=== PATIENT | female | born 1940 | race Hispanic/Latino ===

== ENCOUNTER 2017-11-14 13:15 | Outpatient (CLI) | payer MEDICARE, MEDICAID ==
--- NOTE | 2017-11-14 15:01 | RAD ---
TWO VIEWS CHEST: History: Dyspnea. Comparison: 12-01-14, 12-30-13 FINDINGS: Normal cardiac silhouette. The pulmonary vessels and pulmonary hilum are normal. Costophrenic angles are clear. NO mass. No consolidation. No pneumothorax or osseous abnormalities. IMPRESSION: No acute cardiopulmonary process. POS: [facility]
== END 2017-11-14 13:16 | disposition home or self-care (01) ==
LOC: RAD 13:15
PROVIDERS: ATTEND Internal Medicine
DX: R06.00 Dyspnea, unspecified (principal)
CPT/HCPCS: 71046

== ENCOUNTER 2017-12-26 08:20 | Outpatient (CLI) | payer MEDICARE, MEDICAID ==
--- NOTE | 2017-12-26 10:13 | MRI ---
CERVICAL SPINE MRI WITHOUT CONTRAST: Date: 12-26-17 Comparison: 06-30-15 History: Cervical disc disorder of C6-7. Pain and radiculopathy. History of thoracic spine compressio n fracture. Technique: Multiplanar, multisequence MRI images were obtained of the cervical spine without contrast . FINDINGS: A new burst fracture is noted at the T4 vertebral body with complete loss of vertebral height as well as osseous retropulsion and anterolisthesis measuring 5-6 mm. On STIR imaging there is mild increase d signal within the completely compressed T4 vertebral body consistent with the history of recent fra cture. This is better evaluated on dedicated thoracic spine MRI. Sagittal and STIR imaging demonstrates no focal area of marrow edema within the cervical spine. C2-3: There is mild disc space narrowing. There is disc desiccation. There is mild bilateral facet an d uncal vertebral osteophyte formation. There is no significant central canal or neural foraminal deidre nosis. C3-4: There is disc space narrowing and disc desiccation. There is bilateral facet and uncal vertebra l osteophyte formation. There is partial effacement of the ventral thecal sac with mild central canal stenosis. Mild bilateral neural foraminal stenosis noted. C4-5: There is disc space narrowing, disc desiccation and disc bulge partially effacing the ventral t hecal sac and causing a moderate degree of central canal stenosis. Facet and uncal vertebral osteophy te formation noted bilaterally with moderate right and mild left neural foraminal stenosis. C5-6: There is disc space narrowing, disc desiccation, and disc bulge with partial effacement of the ventral thecal sac and mild to moderate central canal stenosis. Facet and uncal vertebral osteophyte formation noted bilaterally with mild bilateral neural foraminal stenosis. C6-7: There is disc space narrowing, disc desiccation and disc bulge with bilateral facet and uncal v ertebral osteophyte formation. There is partial effacement of the ventral thecal sac with a mild degr ee of central canal stenosis. There is disc protrusion and prominent uncal vertebral osteophyte forma tion on the right in the right foraminal region with a moderate/severe degree of right neural foramin al stenosis. Mild central canal stenosis and mild left neural foraminal stenosis. C7-T1: Mild bilateral facet hypertrophy with mild bilateral neural foraminal stenosis. There is disc desiccation and mild disc bulge with mild central canal stenosis. No focal area of abnormal signal intensity identified within the cervical cord. IMPRESSION: 1. Burst fracture at T4 with anterolisthesis, focal kyphosis, and osseous retropulsion. This is isac r evaluated on dedicated thoracic spine MRI. 2. Multilevel degenerative change noted within the cervical spine as described above. POS: [facility]
--- NOTE | 2017-12-26 10:46 | MRI ---
MRI LUMBAR SPINE WITHOUT IV CONTRAST: HISTORY: A 77-year-old female with a history of low back pain and radiculopathy. TECHNIQUE: Multiplanar, multisequence MRI examination of the lumbar spine is performed. FINDINGS: Generalized disk desiccation changes and ligament and facet hypertrophic changes. The conus medullar is region is unremarkable, terminating at L1-L2. Small disk protrusion at T12-L1 with mild central c anal stenosis. Mild lateral recess stenosis at L1-L2. Moderate lateral recess stenosis at L2-L3 with mild right foraminal stenosis. At L3-L4, moderate central canal and lateral recess stenosis and bilateral foraminal stenosis. At L4-L5, there is very severe canal and lateral recess stenosis with marked facet arthrosis and flui d within the facet joints, with moderate bilateral foraminal stenosis. Moderate central canal stenosis at L5-S1, mild bilateral foraminal stenosis, and bilateral recess deidre nosis, greater on the right side. IMPRESSION: Variable severity multilevel canal, lateral recess, and foraminal stenosis, most marked at L4-L5. POS: [facility]
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
== END 2017-12-26 08:21 | disposition home or self-care (01) ==
LOC: TBSIIMAG 08:20
PROVIDERS: ATTEND Family Medicine
DX: M50.023 Cervical disc disorder at C6-C7 level with myelopathy (principal); S22.000S Wedge compression fracture of unspecified thoracic vertebra, sequela; M54.17 Radiculopathy, lumbosacral region; M54.5 Low back pain; M99.83 Other biomechanical lesions of lumbar region
CPT/HCPCS: 72141; 72146; 72148

== ENCOUNTER 2018-10-25 12:33 | Outpatient (CLI) | payer MEDICARE, MEDICAID ==
--- NOTE | 2018-10-25 13:09 | ULT ---
ULTRASOUND RETROPERITONEUM COMPLETE: (RENAL) DATE: 10/25/2018. HISTORY: A 78-year-old female with urinary tract infection. FINDINGS: Right kidney measures 10 x 5.5 x 5 cm. No hydronephrosis. Normal renal parenchymal echogenicity and thickness. No moderate-sized or large renal cystic or solid mass identified. Left kidney surgicall y absent. Borderline mural thickening of urinary bladder. IMPRESSION: 1. Status post left nephrectomy. 2. Normal sonographic appearance of the right kidney. CHAPINCITO Dunham POS: [facility]
== END 2018-10-25 12:34 | disposition home or self-care (01) ==
LOC: BICULT 12:33
PROVIDERS: ATTEND Urology
DX: N39.0 Urinary tract infection, site not specified (principal); Z98.890 Other specified postprocedural states
CPT/HCPCS: 76770

== ENCOUNTER 2018-11-19 13:30 | Outpatient (CLI) | payer MEDICARE, MEDICAID ==
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
== END 2018-11-19 13:31 | disposition home or self-care (01) ==
LOC: BICMRI 13:30
PROVIDERS: ATTEND Neurological Surgery
DX: M47.12 Other spondylosis with myelopathy, cervical region (principal); M48.56XA Collapsed vertebra, not elsewhere classified, lumbar region, initial encounter for fracture; S22.041A Stable burst fracture of fourth thoracic vertebra, initial encounter for closed fracture; M43.14 Spondylolisthesis, thoracic region; M48.04 Spinal stenosis, thoracic region; M48.02 Spinal stenosis, cervical region
CPT/HCPCS: 72141; 72146

== ENCOUNTER 2019-01-09 04:57 | Inpatient (IN) | payer MEDICARE, MEDICAID ==
[2019-01-09 05:40] LABS: #Eosinphils 0.1 thou/uL (0.0-0.7); #Lymphocytes 1.7 thou/uL (1.20-3.40); #Monocytes 0.2 thou/uL (0.11-0.59); #Neutrophils 8.4 thou/uL (1.40-6.50); %Basophils 0.2 % (0.0-1.0); %Eosinophils 0.8 % (0.0-10.0); %Lymphocytes 16.3 % (21.0-51.0); %Neutrophils 80.8 % (42.0-75.0); Hemoglobin 12.3 g/dL (12.0-16.0); Mean Corpuscular HGB CONC 32.5 g/dL (32.0-36.0); Mean Corpuscular Hemoglobin 29.1 pg (27.0-31.0); Mean Corpuscular Volume 89.5 fL (78.0-98.0); Mean Platelet Volume 8.9 fL (7.4-10.4); Platelet Count 188 thou/uL (130-400); RBC Distribution Width 11.8 % (11.5-14.5); Red Blood Cell (RBC) Count 4.21 mill/uL (4.20-5.40); White Blood Cell (WBC) Count 10.4 thou/uL (4.8-10.8)
[2019-01-09 06:04] LABS: ALT (SGPT) 9 U/L (8-55); AST (SGOT) 23 U/L (5-34); Alkaline Phosphatase 79 U/L (40-150); Anion Gap 16 mmol/L (10-20); BUN (Urea Nitrogen) 15 mg/dL (9.8-20.1); Bilirubin, Total 0.9 mg/dL (0.2-1.2); CK (CPK) 60 U/L (29-168); Calc. Creatinine Clearance 0 mL/min (70-130); Calcium 9.6 mg/dL (7.8-10.44); Carbon Dioxide 24 mmol/L (23-31); Chloride 102 mmol/L (98-107); Estimated GFR-MDRD 36; Globulin 3.5 g/dL (2.4-3.5); Glucose 222 mg/dL (83-110); Lipase 24 U/L (8-78); Potassium 4.5 mmol/L (3.5-5.1); Protein, Total 7.5 g/dL (6.0-8.3); Sodium 137 mmol/L (136-145)
[2019-01-09 06:22] LABS: Bilirubin Negative (Negative); Blood, Urine Moderate (Negative); Glucose, Urine (Dipstick) Negative (Negative); Leukocyte Large (Negative); Nitrite Positive (Negative); Protein, Urine (Dipstick) 100 mg/dL (Neg-Trace); Urobilinogen 0.2 mg/dL (0.2-1.0)
[2019-01-09 06:32] LABS: Clarity Cloudy (Clear)
[2019-01-09 06:35] LABS: Bacteria/HPF 3+ HPF (None Seen); RBC/HPF 0-3 HPF (0-3); Transitional Epithelial 0-3 HPF (0-3); WBC/HPF 21-50 HPF (0-3)
[2019-01-09] MEDS ORDERED: Ketorolac Tromethamine 30 MG/ML VIAL ONE ×2 (06:58→06:59)
--- NOTE | 2019-01-09 07:24 | RAD ---
EXAM: Single view of the chest HISTORY: Abdominal pain and fever COMPARISON: 12/01/2014 FINDINGS: Single view of the chest shows a normal sized cardiomediastinal silhouette. There is no stephen dence of consolidation, mass, or pleural effusion. The bones are unremarkable. IMPRESSION: No evidence of acute cardiopulmonary disease
[2019-01-09] MEDS ORDERED: Acetaminophen 500 MG TAB ONE (08:00)
--- NOTE | 2019-01-09 08:01 | CT ---
ABDOMEN AND PELVIC CT SCAN WITHOUT IV CONTRAST: HISTORY: Flank pain, suprapubic pain, hypertension, status post nephrectomy for renal cell carcinoma. FINDINGS: Bibasilar opacity interstitial and alveolar parenchymal changes, evidence for bibasilar pneumonia and /or subsegmental atelectasis. Three-vessel coronary artery calcific disease. Liver, gallbladder, pa ncreas, spleen, and adrenal glands are unremarkable. Status post left nephrectomy. No evidence for right-sided calculus or acute obstruction, although there is some mild dilatation of the right upp er renal collecting system and right ureter, nonspecific. Given the lack of obstructing process, the possibility of pyelonephritis certainly should be considered. Normal-appearing appendix. Scattered colonic diverticulosis without acute diverticulitis. Urinary bladder is unremarkable. Uterus and a dnexa regions are unremarkable. IMPRESSION: Status post left nephrectomy. No renal calculus or acute obstruction, although there is dilatatio n, mild, of the right upper renal collecting system and ureter, the possibility of pyelonephritis tiffany uld be considered. Bibasilar pulmonary parenchymal changes, evidence for pneumonia and/or subsegment al atelectasis. Other findings as above. POS: [facility]
[2019-01-09] MEDS ORDERED: Acetaminophen 325 MG TAB ONE (08:02)
[2019-01-09] MEDS ORDERED: Artificial Tears 18 DROP/0.9 ML EA EYE PRN (10:19)
[2019-01-09] MEDS ORDERED: Cepastat Lozenges 1 LOZ PO PRN (10:19)
[2019-01-09] MEDS ORDERED: Calcium Carbonate 500 MG ChewTAB PO PRN (10:19)
[2019-01-09] MEDS ORDERED: Senokot S 8.6-50 MG TAB PO PRN (10:19)
[2019-01-09] MEDS ORDERED: Loratadine 10 MG TAB PO PRN (10:19)
[2019-01-09] MEDS ORDERED: Diabetic Tussin 200 MG/10 ML UDCUP PO PRN (10:19)
[2019-01-09] MEDS ORDERED: HYDROcodone/Acetaminophen 5/325 mg Tablet PO PRN (10:19)
[2019-01-09] MEDS ORDERED: Bisacodyl 10 MG SUPP PR PRN (10:19)
[2019-01-09] MEDS ORDERED: Loperamide HCl 2 MG CAP PO PRN (10:19)
[2019-01-09] MEDS ORDERED: Sodium Chloride 0.65% Nasal 44 ML BOT EA NARE PRN (10:19)
[2019-01-09] MEDS ORDERED: Zolpidem Tartrate 5 MG TAB PO PRN (10:19)
[2019-01-09 10:47] VITALS: BMI 32.5
[2019-01-09] MEDS: Sodium Chloride 0.9% 1,000 ML IV SCH ×2 (12:42→21:04)
[2019-01-09] MEDS: Meropenem 500 MG in Sodium Chloride 0.9% 100 ML IVPB SCH ×2 (12:42→21:03)
--- NOTE | 2019-01-09 14:14 | HP ---
PRIMARY CARE PHYSICIAN: Dr. Citlali Alcazar. REASON FOR ADMISSION: Sepsis, acute pyelonephritis. HISTORY OF PRESENT ILLNESS: A 78-year-old female, who has underlying history of left nephrectomy for renal cell carcinoma, who presented to emergency room with complaint of right-sided lumbar pain and right-sided lower abdominal pain. The patient is also having dysuria, increased frequency, nausea, vomiting, and fever. Symptoms going on for last 8 days. The patient did not try any medications. She was trying [id number] medication with Tylenol without any improvement. Her symptoms were getting worse. She started getting high-grade fever with chills. She was feeling more nauseated and she was not able to hold anything p.o. and that is why family member brought her to emergency room for evaluation. In the emergency room, the patient was having high-grade fever. She had CT stone protocol which showed pyelonephritis. The patient was meeting sepsis criteria with tachycardia, fever. The patient received ciprofloxacin in the emergency room. She was given Toradol 15 mg, IV fluid 2 L and Tylenol. The patient is being admitted to medical floor for further evaluation and treatment. She denies any upper respiratory symptoms. She denies any chest pain, palpitation, cough. She denies any constipation, diarrhea. She denies any headache. REVIEW OF SYSTEMS: CONSTITUTIONAL: Negative for weight loss or gain, ability to conduct usual activities. SKIN: Negative for rash, itching. EYES: Negative for double vision, pain. ENT/MOUTH: Negative for nose bleeding, neck stiffness, pain, tenderness. CARDIOVASCULAR: Negative for palpitations, dyspnea on exertion, orthopnea. RESPIRATORY: Negative for shortness of breath, wheezing, cough, hemoptysis, fever or night sweats. GASTROINTESTINAL: Negative for poor appetite, abdominal pain, heartburn, nausea, vomiting, constipation, or diarrhea. GENITOURINARY: Negative for urgency, frequency, dysuria, nocturia. MUSCULOSKELETAL: Negative for pain, swelling. NEUROLOGIC/PSYCHIATRIC: Negative for anxiety, depression. ALLERGY/IMMUNOLOGIC: Negative for skin rash, bleeding tendency. Please see my HPI for pertinent positives and negatives. All other review of systems reviewed and negative except as mentioned in HPI. PAST MEDICAL HISTORY: Diabetes type 2, hypertension, dyslipidemia, history of renal cell carcinoma treated with nephrectomy, gastroesophageal reflux disease. PAST SURGICAL HISTORY: Left renal cell carcinoma treated with left-sided nephrectomy. PAST PSYCHIATRIC HISTORY: Anxiety disorder. SOCIAL HISTORY: The patient denies any tobacco, alcohol, or illicit drug abuse. She lives at home by herself and she is able to do all routine activities of life by herself. FAMILY HISTORY: Diabetes runs among several family members. No strong family history of premature coronary artery disease, stroke, or cancer. ALLERGIES: THE PATIENT IS ALLERGIC TO PENICILLIN, WHICH SHE IS NOT SURE OF SIDE EFFECTS. SHE WAS TOLD SEVERAL YEARS AGO ABOUT PENICILLIN ALLERGY. CURRENT HOME MEDICATION: 1. Metformin 1000 mg p.o. b.i.d. 2. Tramadol 50 mg q.8 hourly p.r.n. 3. Zofran ODT 4 mg q.6 hourly p.r.n. 4. Amlodipine 2.5 mg p.o. daily. 5. Losartan 50 mg p.o. daily. 6. Clonazepam 0.5 mg q.8 hourly p.r.n. 7. Repaglinide 1 mg p.o. daily. 8. Fenofibrate 48 mg p.o. daily. 9. Glipizide 10 mg p.o. daily. 10. Metoprolol tartrate 25 mg p.o. b.i.d. 11. Omeprazole 40 mg p.o. daily. EMERGENCY ROOM COURSE: The patient has received Cipro 400 mg, Tylenol 650 mg, Toradol 15 mg, IV fluid 2 L. PHYSICAL EXAMINATION: VITAL SIGNS: On arrival, blood pressure 116/50, pulse 106, temperature 101.5, saturation 95% on 2L oxygen. Weight 65.8 kg. GENERAL: The patient is currently alert, awake, appears a little bit sick. No obvious acute distress. HEENT: Head normocephalic, atraumatic. Eyes: Pupils round, reactive to light. Extraocular muscle intact. ENT: Oropharynx within normal limits. Dry appearing mucous membranes. No oral lesion. No pharyngeal erythema. No exudate. NECK: Supple. No JVD. No thyromegaly. No carotid bruit. No jugular venous distention. LUNGS: Clear to auscultation without any rhonchi or rales. CARDIAC: S1, S2. Regular. Slight tachycardia. No murmur. No gallop. No rub. ABDOMEN: Soft. The patient does have CVA tenderness on the right side. Does have right-sided lower abdominal discomfort. Obesity present. Bowel sounds present. No peritoneal sign. No guarding. No rigidity. BACK: Right-sided CVA tenderness noted. EXTREMITIES: Upper extremities, passive movement of all joints are normal. Lower extremity, no edema. Good distal pulsation. SKIN: No skin rash. HEMATOLOGICAL: No lymphadenopathy. PSYCHIATRIC: Normal affect. SIGNIFICANT LABORATORY DATA: EKG showing a left axis deviation, normal sinus rhythm without any acute ischemic changes. Chest x-ray based on my review no acute cardiopulmonary process. CT stone protocol showing left nephrectomy and right-sided perinephric stranding, bibasilar pulmonary parenchymal changes consistent with either pneumonia versus atelectasis. CBC: WBC 10.4, hemoglobin 12.3, platelet 188. BMP: Sodium 137, potassium 4.5, BUN 15, creatinine 1.42, glucose 222, calcium 9.6, lactic acid 1.0. LFT: AST 23, ALT 9, alkaline phosphatase 79, albumin 4.0, lipase 24. Urinalysis consistent with UTI. IMPRESSION: 1. Acute cystitis as well as acute pyelonephritis. 2. Sepsis due to problem #1. 3. Acute kidney injury. 4. Diabetes type 2. 5. Hypertension. 6. Gastroesophageal reflux disease. 7. Dyslipidemia. PLAN: Full admission to medical floor. We will hold on antihypertensive medication because of relatively low blood pressure and if blood pressure improves, then we will resume selected blood pressure medication. We will continue IV fluid with NS at 100 mL/h and monitor hemodynamics. We will start meropenem 500 mg IV q.8 hourly based on her previous culture result because some culture were resistant to fluoroquinolones as well. We will follow up on culture result and change antibiotic therapy accordingly. We will repeat labs tomorrow. We will control her pain with morphine p.r.n. basis. We will provide probiotics, Florastor 250 mg p.o. daily and symptomatic treatment for nausea and vomiting and pain. Deep venous thrombosis prophylaxis with Lovenox 40 mg subcu daily. GI prophylaxis with Pepcid 20 mg p.o. b.i.d. CODE STATUS: The patient is full code. The patient's son is THE surrogate decision maker. DISPOSITION: Planned based on clinical course. Plan of care discussed with the patient and family member at bedside in detail. Job ID: [id number]
[2019-01-09] MEDS ORDERED: Ondansetron PF 4 MG/2 ML Vial SLOW IVP PRN (16:43)
[2019-01-09] MEDS ORDERED: Ondansetron ODT 4 MG TAB SL PRN (16:43)
[2019-01-09] MEDS: Acetaminophen 325 MG TAB PO PRN (17:16)
[2019-01-09] MEDS: Famotidine 20 MG TAB PO SCH (21:01)
[2019-01-09] MEDS ORDERED: Sodium Chloride 0.9% 500 ML IV SCH (23:45)
[2019-01-10 00:15] LABS: Hemoglobin 10.6 g/dL (12.0-16.0); Mean Corpuscular HGB CONC 33.3 g/dL (32.0-36.0); Mean Corpuscular Hemoglobin 30.1 pg (27.0-31.0); Mean Corpuscular Volume 90.3 fL (78.0-98.0); Mean Platelet Volume 8.4 fL (7.4-10.4); Platelet Count 159 thou/uL (130-400); RBC Distribution Width 11.8 % (11.5-14.5); Red Blood Cell (RBC) Count 3.51 mill/uL (4.20-5.40); White Blood Cell (WBC) Count 15.7 thou/uL (4.8-10.8)
[2019-01-10 00:28] LABS: Band 24 % (5-11); Lymphocytes 6 % (21-51); MDiff Complete? YES; Monocytes 4 % (0-10); Neutrophil 66 % (42-75); Platelet Morphology Comment Appears Adequate
[2019-01-10] MEDS: Sodium Chloride 0.9% 1,000 ML IV SCH ×3 (03:52→21:13)
[2019-01-10 04:54] LABS: #Eosinphils 0.1 thou/uL (0.0-0.7); #Lymphocytes 2.5 thou/uL (1.20-3.40); #Monocytes 0.9 thou/uL (0.11-0.59); #Neutrophils 11.5 thou/uL (1.40-6.50); %Basophils 0.1 % (0.0-1.0); %Eosinophils 0.4 % (0.0-10.0); %Lymphocytes 16.5 % (21.0-51.0); %Monocytes 5.7 % (0.0-10.0); %Neutrophils 77.3 % (42.0-75.0); Hemoglobin 10.1 g/dL (12.0-16.0); Mean Corpuscular HGB CONC 32.9 g/dL (32.0-36.0); Mean Corpuscular Hemoglobin 30.6 pg (27.0-31.0); Mean Corpuscular Volume 93.1 fL (78.0-98.0); Mean Platelet Volume 8.6 fL (7.4-10.4); Platelet Count 148 thou/uL (130-400); RBC Distribution Width 11.8 % (11.5-14.5); Red Blood Cell (RBC) Count 3.28 mill/uL (4.20-5.40); White Blood Cell (WBC) Count 14.9 thou/uL (4.8-10.8)
[2019-01-10] MEDS: Meropenem 500 MG in Sodium Chloride 0.9% 100 ML IVPB SCH (05:22)
[2019-01-10 05:23] LABS: Anion Gap 12 mmol/L (10-20); BUN (Urea Nitrogen) 18 mg/dL (9.8-20.1); Calc. Creatinine Clearance 39 mL/min (70-130); Calcium 7.5 mg/dL (7.8-10.44); Carbon Dioxide 17 mmol/L (23-31); Chloride 109 mmol/L (98-107); Estimated GFR-MDRD 38; Glucose 113 mg/dL (83-110); Sodium 134 mmol/L (136-145)
[2019-01-10] MEDS: Acetaminophen 325 MG TAB PO PRN ×2 (07:33→16:24)
[2019-01-10] MEDS: Saccharomyces boulardii 250 MG CAP PO SCH (08:23)
[2019-01-10] MEDS: Famotidine 20 MG TAB PO SCH (08:23)
[2019-01-10] MEDS: Enoxaparin Sodium 40 MG/0.4 ML SYRINGE SC SCH (08:23)
--- NOTE | 2019-01-10 09:36 | EKG ---
Test Reason : Blood Pressure : / mmHG Vent. Rate : 098 BPM Atrial Rate : 098 BPM P-R Int : 154 ms QRS Dur : 078 ms QT Int : 336 ms P-R-T Axes : 017 -47 033 degrees QTc Int : 428 ms Normal sinus rhythm Left axis deviation Inferior infarct , age undetermined Possible Anterior infarct , age undetermined Abnormal ECG Confirmed by CLIFFORD MOTTA D.O. ([id number]), pictures editor DUTCH DOVE ([id number]) on 01/10/2019 9:36:10 AM Referred By: Confirmed By:CLIFFORD MOTTA D.O.
--- NOTE | 2019-01-10 11:11 | PDOC.PN ---
- Subjective Encounter Start Date: 01/10/19 Encounter Start Time: 07:15 -: old records requested/rev Patient seen and examined. No new complaints. No overnight events - Objective Resuscitation Status - Order Detail: 01/09/19 08:00 Resuscitation Status Routine Resuscitation Status: FULL: Full Resuscitation MAR Reviewed: Yes Vital Signs & Weight: Vital Signs (12 hours) Temp Pulse Resp BP Pulse Ox 01/10/19 10:17 70 16 01/10/19 06:57 98.4 F 70 16 104/51 L 93 L 01/10/19 06:37 96 01/10/19 06:36 63 16 96 01/10/19 03:55 98.3 F 67 16 101/52 L 95 01/10/19 02:51 16 94 L 01/10/19 00:58 98.1 F 67 20 100/60 92 L 01/09/19 23:31 98.9 F 68 16 89/52 L 93 L Weight Weight 155 lb 12.8 oz I&O: 01/09/19 01/10/19 01/11/19 06:59 06:59 06:59 Intake Total 2320 Output Total 225 Balance 2095 Result Diagrams: 01/10/19 04:32 01/10/19 04:32 Additional Labs: Accuchecks 01/09/19 16:55 POC Glucose 156 H Phys Exam - Physical Examination Constitutional: NAD HEENT: PERRLA, moist MMs, sclera anicteric Neck: no JVD, supple Respiratory: no wheezing, no rales, no rhonchi Cardiovascular: RRR, no significant murmur, no rub Gastrointestinal: soft, non-tender, no distention, positive bowel sounds right CVA tenderness reduced Musculoskeletal: no edema, pulses present Neurological: non-focal, normal sensation, moves all 4 limbs Lymphatic: no nodes Psychiatric: normal affect, A&O x 3 Skin: no rash, normal turgor Dx/Plan (1) Acute kidney failure Status: Acute (2) Acute pyelonephritis Code(s): N10 - ACUTE PYELONEPHRITIS Status: Acute Comment: with acute cystitis (3) Bacteremia due to Escherichia coli Code(s): R78.81 - BACTEREMIA Status: Acute (4) Sepsis with acute organ dysfunction Code(s): A41.9 - SEPSIS, UNSPECIFIED ORGANISM; R65.20 - SEVERE SEPSIS WITHOUT SEPTIC SHOCK Status: Acute (5) Anxiety and depression Code(s): F41.9 - ANXIETY DISORDER, UNSPECIFIED; F32.9 - MAJOR DEPRESSIVE DISORDER, SINGLE EPISODE, UNSPECIFIED Status: Chronic (6) Diabetes type 2, controlled Code(s): E11.9 - TYPE 2 DIABETES MELLITUS WITHOUT COMPLICATIONS Status: Chronic (7) Dyslipidemia Code(s): E78.5 - HYPERLIPIDEMIA, UNSPECIFIED Status: Chronic (8) GERD (gastroesophageal reflux disease) Code(s): K21.9 - GASTRO-ESOPHAGEAL REFLUX DISEASE WITHOUT ESOPHAGITIS Status: Chronic (9) H/O left nephrectomy Code(s): Z90.5 - ACQUIRED ABSENCE OF KIDNEY Status: Chronic Comment: for left renal cell carcinoma (10) Hypertension Code(s): I10 - ESSENTIAL (PRIMARY) HYPERTENSION Status: Chronic (11) Obesity (BMI 30.0-34.9) Code(s): E66.9 - OBESITY, UNSPECIFIED Status: Chronic - Plan cont current plan of care, plan discussed w/ family, continue antibiotics, PT/OT , DVT proph w/lovenox * continue meropenam 1 gm iv q 8 hourly * continue IVF * follow sensitivity result * discussed with son * medication reviewed as below * symptomatic treatment. * start PT Review of Systems - Review of Systems ENT: negative: Ear Pain, Ear Discharge, Nose Pain, Nose Discharge, Nose Congestion, Mouth Pain, Mouth Swelling, Throat Pain, Throat Swelling, Other Respiratory: negative: Cough, Dry, Shortness of Breath, Hemoptysis, SOB with Excertion, Pleuritic Pain, Sputum, Wheezing Cardiovascular: negative: chest pain, palpitations, orthopnea, paroxysmal nocturnal dyspnea, edema, light headedness, other Gastrointestinal: negative: Nausea, Vomiting, Abdominal Pain, Diarrhea, Constipation, Melena, Hematochezia, Other Genitourinary: negative: Dysuria, Frequency, Incontinence, Hematuria, Retention , Other Musculoskeletal: negative: Neck Pain, Shoulder Pain, Arm Pain, Back Pain, Hand Pain, Leg Pain, Foot Pain, Other - Medications/Allergies Allergies/Adverse Reactions: Allergies Allergy/AdvReac Type Severity Reaction Status Date / Time Penicillins Allergy Verified 01/09/19 07:06 Medications: Current Medications Acetaminophen (Tylenol) 650 mg PO Q4H PRN PRN Reason: Headache/Fever/Mild Pain (1-3) Last Admin: 01/10/19 07:33 Dose: 650 mg Hydrocodone Bitart/Acetaminophen ([place] 5/325) 1 tab PO Q4H PRN PRN Reason: Moderate Pain (4-6) Albuterol/Ipratropium (Duoneb) 3 ml NEB [id number] [facility] Last Admin: 01/10/19 10:17 Dose: 3 ml Artificial Tears (Tears Naturale) 2 drop EA EYE PRN PRN PRN Reason: Dry Eyes Bisacodyl (Dulcolax) 10 mg [place] DAILYPRN PRN PRN Reason: Constipation Last Admin: 01/10/19 07:33 Dose: 10 mg Calcium Carbonate (Tums) 1,000 mg PO Q4H PRN PRN Reason: Heartburn or Indigestion Enoxaparin Sodium (Lovenox) 40 mg SC 0900 [facility] Last Admin: 01/10/19 08:23 Dose: 40 mg Famotidine (Pepcid) 20 mg PO BID [facility] Last Admin: 01/10/19 08:23 Dose: 20 mg Guaifenesin (Robitussin Sf) 200 mg PO Q4H PRN PRN Reason: Cough Hydralazine HCl (Apresoline) 10 mg SLOW IVP Q4H PRN PRN Reason: SBP > 180 and HR < 70 Sodium Chloride (Normal Saline 0.9%) 1,000 mls @ 100 mls/hr IV .Q10H [facility] Last Admin: 01/10/19 03:52 Dose: 1,000 mls Meropenem 500 mg/ Sodium (Chloride) 100 mls @ 200 mls/hr IVPB Q8HR [facility] Last Admin: 01/10/19 05:22 Dose: 100 mls Loperamide HCl (Imodium) 2 mg PO PRN PRN PRN Reason: Diarrhea/Loose Stools Loratadine (Claritin) 10 mg PO DAILYPRN PRN PRN Reason: Sinus Symptoms Morphine Sulfate (Morphine) 2 mg SLOW IVP Q4H PRN PRN Reason: Pain Ondansetron HCl (Zofran) 4 mg SLOW IVP Q4H PRN PRN Reason: Nausea Last Admin: 01/09/19 17:16 Dose: 4 mg Ondansetron HCl (Zofran Odt) 4 mg SL Q4H PRN PRN Reason: Nausea Saccharomyces Boulardii (Florastor) 250 mg PO DAILY [facility] Last Admin: 01/10/19 08:23 Dose: 250 mg Senna/Docusate Sodium (Senokot S) 2 tab PO BID PRN PRN Reason: Constipation Last Admin: 01/09/19 21:01 Dose: 2 tab Sodium Chloride ([place] Nasal [place] 0.65%) 0 ml EA NARE QIDPRN PRN PRN Reason: Nasal Congestion Throat Lozenges (Cepastat Lozenges) 1 estefany PO Q2H PRN PRN Reason: Sore Throat Zolpidem Tartrate (Ambien) 5 mg PO HSPRN PRN PRN Reason: Insomnia
[2019-01-10] MEDS ORDERED: MEROPENEM 1 GM/50 ML 1 GM in Premix Bag 1 BAG IVPB SCH (12:00)
[2019-01-10] MEDS: ALPRAZolam 0.25 MG TAB PO PRN (13:13)
[2019-01-10] MEDS: MEROPENEM 1 GM/50 ML 1 GM in Premix Bag 1 BAG IVPB SCH ×2 (13:51→21:13)
[2019-01-10] MEDS ORDERED: Meropenem 1 GM in Sodium Chloride 0.9% 100 ML IVPB SCH (14:00)
[2019-01-10] MEDS ORDERED: Dextrose 50% Abboject 50 ML SYRINGE SLOW IVP PRN (21:22)
[2019-01-10] MEDS ORDERED: HumaLOG 300 UNITS/3 ML VIAL SC PRN (21:22)
[2019-01-10] MEDS ORDERED: Dextrose 5% in Water 1,000 ML IV PRN (21:22)
[2019-01-11] MEDS: ALPRAZolam 0.25 MG TAB PO PRN (03:59)
[2019-01-11] MEDS: MEROPENEM 1 GM/50 ML 1 GM in Premix Bag 1 BAG IVPB SCH (05:26)
[2019-01-11] MEDS: Enoxaparin Sodium 40 MG/0.4 ML SYRINGE SC SCH (09:34)
[2019-01-11] MEDS: Saccharomyces boulardii 250 MG CAP PO SCH (09:34)
[2019-01-11] MEDS: Famotidine 20 MG TAB PO SCH (09:34)
--- NOTE | 2019-01-11 11:44 | PDOC.PN ---
- Subjective Encounter Start Date: 01/11/19 Encounter Start Time: 07:15 Patient seen and examined. No new complaints. No overnight events - Objective Resuscitation Status - Order Detail: 01/09/19 08:00 Resuscitation Status Routine Resuscitation Status: FULL: Full Resuscitation MAR Reviewed: Yes Vital Signs & Weight: Vital Signs (12 hours) Temp Pulse Resp BP BP Pulse Ox 01/11/19 10:53 73 16 01/11/19 08:20 98.6 F 79 18 150/67 H 95 01/11/19 07:09 70 16 01/11/19 03:47 98.2 F 62 16 140/61 95 Weight Weight 155 lb 12.8 oz I&O: 01/10/19 01/11/19 01/12/19 06:59 06:59 06:59 Intake Total 2320 3910 Output Total 225 Balance 2095 3910 Result Diagrams: 01/10/19 04:32 01/10/19 04:32 Additional Labs: Accuchecks 01/11/19 05:30 POC Glucose 194 H Phys Exam - Physical Examination Constitutional: NAD HEENT: PERRLA, moist MMs, sclera anicteric Neck: no JVD, supple Respiratory: no wheezing, no rales, no rhonchi Cardiovascular: RRR, no significant murmur, no rub Gastrointestinal: soft, non-tender, no distention, positive bowel sounds Musculoskeletal: no edema, pulses present Neurological: non-focal, normal sensation, moves all 4 limbs Lymphatic: no nodes Psychiatric: normal affect, A&O x 3 Skin: no rash, normal turgor Dx/Plan (1) Acute kidney failure Status: Acute (2) Acute pyelonephritis Code(s): N10 - ACUTE PYELONEPHRITIS Status: Acute Comment: with acute cystitis (3) Bacteremia due to Escherichia coli Code(s): R78.81 - BACTEREMIA Status: Acute (4) Sepsis with acute organ dysfunction Code(s): A41.9 - SEPSIS, UNSPECIFIED ORGANISM; R65.20 - SEVERE SEPSIS WITHOUT SEPTIC SHOCK Status: Acute (5) Anxiety and depression Code(s): F41.9 - ANXIETY DISORDER, UNSPECIFIED; F32.9 - MAJOR DEPRESSIVE DISORDER, SINGLE EPISODE, UNSPECIFIED Status: Chronic (6) Diabetes type 2, controlled Code(s): E11.9 - TYPE 2 DIABETES MELLITUS WITHOUT COMPLICATIONS Status: Chronic (7) Dyslipidemia Code(s): E78.5 - HYPERLIPIDEMIA, UNSPECIFIED Status: Chronic (8) GERD (gastroesophageal reflux disease) Code(s): K21.9 - GASTRO-ESOPHAGEAL REFLUX DISEASE WITHOUT ESOPHAGITIS Status: Chronic (9) H/O left nephrectomy Code(s): Z90.5 - ACQUIRED ABSENCE OF KIDNEY Status: Chronic Comment: for left renal cell carcinoma (10) Hypertension Code(s): I10 - ESSENTIAL (PRIMARY) HYPERTENSION Status: Chronic (11) Obesity (BMI 30.0-34.9) Code(s): E66.9 - OBESITY, UNSPECIFIED Status: Chronic - Plan cont current plan of care, continue antibiotics * today based on culture result, will dc meropenam and start IV cipro 400 mg BID * ambulate * DC IVF * medication reviewed as below * symptomatic treatment. * pt is improving * will repeat labs and blood culture tomorrow Review of Systems - Review of Systems ENT: negative: Ear Pain, Ear Discharge, Nose Pain, Nose Discharge, Nose Congestion, Mouth Pain, Mouth Swelling, Throat Pain, Throat Swelling, Other Respiratory: negative: Cough, Dry, Shortness of Breath, Hemoptysis, SOB with Excertion, Pleuritic Pain, Sputum, Wheezing Cardiovascular: negative: chest pain, palpitations, orthopnea, paroxysmal nocturnal dyspnea, edema, light headedness, other Gastrointestinal: negative: Nausea, Vomiting, Abdominal Pain, Diarrhea, Constipation, Melena, Hematochezia, Other Genitourinary: negative: Dysuria, Frequency, Incontinence, Hematuria, Retention , Other Musculoskeletal: negative: Neck Pain, Shoulder Pain, Arm Pain, Back Pain, Hand Pain, Leg Pain, Foot Pain, Other Skin: negative: Rash, Lesions, Sunny, Bruising, Other - Medications/Allergies Allergies/Adverse Reactions: Allergies Allergy/AdvReac Type Severity Reaction Status Date / Time Penicillins Allergy Verified 01/09/19 07:06 Medications: Current Medications Acetaminophen (Tylenol) 650 mg PO Q4H PRN PRN Reason: Headache/Fever/Mild Pain (1-3) Last Admin: 01/10/19 16:24 Dose: 650 mg Hydrocodone Bitart/Acetaminophen ([place] 5/325) 1 tab PO Q4H PRN PRN Reason: Moderate Pain (4-6) Albuterol/Ipratropium (Duoneb) 3 ml NEB [id number] [facility] Last Admin: 01/11/19 10:53 Dose: 3 ml Alprazolam (Xanax) 0.25 mg PO BIDPRN PRN PRN Reason: Anxiety Last Admin: 01/11/19 03:59 Dose: 0.25 mg Artificial Tears (Tears Naturale) 2 drop EA EYE PRN PRN PRN Reason: Dry Eyes Bisacodyl (Dulcolax) 10 mg [place] DAILYPRN PRN PRN Reason: Constipation Last Admin: 01/10/19 07:33 Dose: 10 mg Calcium Carbonate (Tums) 1,000 mg PO Q4H PRN PRN Reason: Heartburn or Indigestion Dextrose/Water (Dextrose 50%) 25 gm SLOW IVP PRN PRN PRN Reason: Hypoglycemia Enoxaparin Sodium (Lovenox) 40 mg SC 0900 [facility] Last Admin: 01/11/19 09:34 Dose: 40 mg Famotidine (Pepcid) 20 mg PO DAILY [facility] Last Admin: 01/11/19 09:34 Dose: 20 mg Glucagon (Glucagon) 1 mg IM PRN PRN PRN Reason: Hypoglycemia Guaifenesin (Robitussin Sf) 200 mg PO Q4H PRN PRN Reason: Cough Hydralazine HCl (Apresoline) 10 mg SLOW IVP Q4H PRN PRN Reason: SBP > 180 and HR < 70 Dextrose/Water (D5w) 1,000 mls @ 0 mls/hr IV .Q0M PRN PRN Reason: Hypoglycemia Ciprofloxacin/Dextrose 400 mg/ (Device) 200 mls @ 200 mls/hr IVPB Q12HR [facility] Last Admin: 01/11/19 09:34 Dose: 200 mls Insulin Human Lispro (Humalog) 0 units SC .MILD SLIDING SCALE PRN PRN Reason: Mild Correctional Scale Insulin Human Lispro (Humalog) 0 units SC .BEDTIME SLIDING SC PRN PRN Reason: Bedtime Correctional Scale Loperamide HCl (Imodium) 2 mg PO PRN PRN PRN Reason: Diarrhea/Loose Stools Loratadine (Claritin) 10 mg PO DAILYPRN PRN PRN Reason: Sinus Symptoms Morphine Sulfate (Morphine) 2 mg SLOW IVP Q4H PRN PRN Reason: Pain Ondansetron HCl (Zofran) 4 mg SLOW IVP Q4H PRN PRN Reason: Nausea Last Admin: 01/09/19 17:16 Dose: 4 mg Ondansetron HCl (Zofran Odt) 4 mg SL Q4H PRN PRN Reason: Nausea Saccharomyces Boulardii (Florastor) 250 mg PO DAILY [facility] Last Admin: 01/11/19 09:34 Dose: 250 mg Senna/Docusate Sodium (Senokot S) 2 tab PO BID PRN PRN Reason: Constipation Last Admin: 01/09/19 21:01 Dose: 2 tab Sodium Chloride ([place] Nasal [place] 0.65%) 0 ml EA NARE QIDPRN PRN PRN Reason: Nasal Congestion Throat Lozenges (Cepastat Lozenges) 1 estefany PO Q2H PRN PRN Reason: Sore Throat Zolpidem Tartrate (Ambien) 5 mg PO HSPRN PRN PRN Reason: Insomnia
[2019-01-11] MEDS: HumaLOG 300 UNITS/3 ML VIAL SC PRN (13:21)
[2019-01-11] MEDS: Acetaminophen 325 MG TAB PO PRN (18:30)
[2019-01-11] MEDS: hydrALAZINE 20 MG/ML VIAL SLOW IVP PRN (23:25)
[2019-01-12 08:34] LABS: #Eosinphils 0.2 thou/uL (0.0-0.7); #Lymphocytes 1.3 thou/uL (1.20-3.40); #Monocytes 0.4 thou/uL (0.11-0.59); #Neutrophils 3.9 thou/uL (1.40-6.50); %Basophils 0.4 % (0.0-1.0); %Eosinophils 3.2 % (0.0-10.0); %Lymphocytes 21.9 % (21.0-51.0); %Neutrophils 67.5 % (42.0-75.0); Hemoglobin 10.6 g/dL (12.0-16.0); Mean Corpuscular HGB CONC 33.8 g/dL (32.0-36.0); Mean Corpuscular Hemoglobin 30.3 pg (27.0-31.0); Mean Corpuscular Volume 89.6 fL (78.0-98.0); Mean Platelet Volume 8.5 fL (7.4-10.4); Platelet Count 199 thou/uL (130-400); RBC Distribution Width 11.8 % (11.5-14.5); Red Blood Cell (RBC) Count 3.51 mill/uL (4.20-5.40); White Blood Cell (WBC) Count 5.7 thou/uL (4.8-10.8)
[2019-01-12 08:56] LABS: Anion Gap 13 mmol/L (10-20); BUN (Urea Nitrogen) 4 mg/dL (9.8-20.1); Calc. Creatinine Clearance 59 mL/min (70-130); Calcium 9.3 mg/dL (7.8-10.44); Carbon Dioxide 21 mmol/L (23-31); Chloride 112 mmol/L (98-107); Estimated GFR-MDRD 62; Glucose 160 mg/dL (83-110); Potassium 3.8 mmol/L (3.5-5.1); Sodium 142 mmol/L (136-145)
[2019-01-12] MEDS: Saccharomyces boulardii 250 MG CAP PO SCH (09:21)
[2019-01-12] MEDS: Famotidine 20 MG TAB PO SCH (09:21)
[2019-01-12] MEDS: Enoxaparin Sodium 40 MG/0.4 ML SYRINGE SC SCH (09:22)
--- NOTE | 2019-01-12 11:24 | PDOC.PN ---
- Subjective Encounter Start Date: 01/12/19 Encounter Start Time: 07:15 Patient seen and examined. No new complaints. No overnight events - Objective Resuscitation Status - Order Detail: 01/09/19 08:00 Resuscitation Status Routine Resuscitation Status: FULL: Full Resuscitation MAR Reviewed: Yes Vital Signs & Weight: Vital Signs (12 hours) Temp Pulse Resp BP BP BP Pulse Ox 01/12/19 08:19 78 18 95 01/12/19 08:00 96 01/12/19 07:25 99.2 F 74 20 131/63 96 01/12/19 03:48 98.4 F 95 16 154/70 H 94 L 01/12/19 02:55 84 18 94 L 01/12/19 00:23 87 16 151/75 H 01/11/19 23:25 79 Weight Weight 155 lb 12.8 oz I&O: 01/11/19 01/12/19 01/13/19 06:59 06:59 06:59 Intake Total 3910 1620 Balance 3910 1620 Result Diagrams: 01/12/19 08:18 01/12/19 08:18 Additional Labs: Accuchecks 01/12/19 01/11/19 01/11/19 05:53 20:24 16:08 POC Glucose 188 H 167 H 132 H 01/11/19 11:33 POC Glucose 177 H Phys Exam - Physical Examination Constitutional: NAD HEENT: PERRLA, moist MMs, sclera anicteric Neck: no JVD, supple Respiratory: no wheezing, no rales, no rhonchi Cardiovascular: RRR, no significant murmur, no rub Gastrointestinal: soft, non-tender, no distention, positive bowel sounds Musculoskeletal: no edema, pulses present Neurological: non-focal, normal sensation, moves all 4 limbs Lymphatic: no nodes Psychiatric: normal affect, A&O x 3 Skin: no rash, normal turgor Dx/Plan (1) Acute kidney failure Status: Acute (2) Acute pyelonephritis Code(s): N10 - ACUTE PYELONEPHRITIS Status: Acute Comment: with acute cystitis (3) Bacteremia due to Escherichia coli Code(s): R78.81 - BACTEREMIA Status: Acute (4) Sepsis with acute organ dysfunction Code(s): A41.9 - SEPSIS, UNSPECIFIED ORGANISM; R65.20 - SEVERE SEPSIS WITHOUT SEPTIC SHOCK Status: Acute (5) Anxiety and depression Code(s): F41.9 - ANXIETY DISORDER, UNSPECIFIED; F32.9 - MAJOR DEPRESSIVE DISORDER, SINGLE EPISODE, UNSPECIFIED Status: Chronic (6) Diabetes type 2, controlled Code(s): E11.9 - TYPE 2 DIABETES MELLITUS WITHOUT COMPLICATIONS Status: Chronic (7) Dyslipidemia Code(s): E78.5 - HYPERLIPIDEMIA, UNSPECIFIED Status: Chronic (8) GERD (gastroesophageal reflux disease) Code(s): K21.9 - GASTRO-ESOPHAGEAL REFLUX DISEASE WITHOUT ESOPHAGITIS Status: Chronic (9) H/O left nephrectomy Code(s): Z90.5 - ACQUIRED ABSENCE OF KIDNEY Status: Chronic Comment: for left renal cell carcinoma (10) Hypertension Code(s): I10 - ESSENTIAL (PRIMARY) HYPERTENSION Status: Chronic (11) Obesity (BMI 30.0-34.9) Code(s): E66.9 - OBESITY, UNSPECIFIED Status: Chronic - Plan cont current plan of care, plan discussed w/ family, continue antibiotics * continue IV cipro today * will consider discharge tomorrow with oral antibiotics * medication reviewed as below * symptomatic treatment * discussed with family. Review of Systems - Review of Systems ENT: negative: Ear Pain, Ear Discharge, Nose Pain, Nose Discharge, Nose Congestion, Mouth Pain, Mouth Swelling, Throat Pain, Throat Swelling, Other Respiratory: negative: Cough, Dry, Shortness of Breath, Hemoptysis, SOB with Excertion, Pleuritic Pain, Sputum, Wheezing Cardiovascular: negative: chest pain, palpitations, orthopnea, paroxysmal nocturnal dyspnea, edema, light headedness, other Gastrointestinal: negative: Nausea, Vomiting, Abdominal Pain, Diarrhea, Constipation, Melena, Hematochezia, Other Genitourinary: negative: Dysuria, Frequency, Incontinence, Hematuria, Retention , Other Musculoskeletal: negative: Neck Pain, Shoulder Pain, Arm Pain, Back Pain, Hand Pain, Leg Pain, Foot Pain, Other - Medications/Allergies Allergies/Adverse Reactions: Allergies Allergy/AdvReac Type Severity Reaction Status Date / Time Penicillins Allergy Verified 01/09/19 07:06 Medications: Current Medications Acetaminophen (Tylenol) 650 mg PO Q4H PRN PRN Reason: Headache/Fever/Mild Pain (1-3) Last Admin: 01/11/19 18:30 Dose: 650 mg Hydrocodone Bitart/Acetaminophen ([place] 5/325) 1 tab PO Q4H PRN PRN Reason: Moderate Pain (4-6) Albuterol/Ipratropium (Duoneb) 3 ml NEB [id number] [facility] Last Admin: 01/12/19 08:19 Dose: 3 ml Alprazolam (Xanax) 0.25 mg PO BIDPRN PRN PRN Reason: Anxiety Last Admin: 01/11/19 03:59 Dose: 0.25 mg Artificial Tears (Tears Naturale) 2 drop EA EYE PRN PRN PRN Reason: Dry Eyes Bisacodyl (Dulcolax) 10 mg [place] DAILYPRN PRN PRN Reason: Constipation Last Admin: 01/10/19 07:33 Dose: 10 mg Calcium Carbonate (Tums) 1,000 mg PO Q4H PRN PRN Reason: Heartburn or Indigestion Dextrose/Water (Dextrose 50%) 25 gm SLOW IVP PRN PRN PRN Reason: Hypoglycemia Enoxaparin Sodium (Lovenox) 40 mg SC 0900 [facility] Last Admin: 01/12/19 09:22 Dose: 40 mg Famotidine (Pepcid) 20 mg PO DAILY [facility] Last Admin: 01/12/19 09:21 Dose: 20 mg Glucagon (Glucagon) 1 mg IM PRN PRN PRN Reason: Hypoglycemia Guaifenesin (Robitussin Sf) 200 mg PO Q4H PRN PRN Reason: Cough Hydralazine HCl (Apresoline) 10 mg SLOW IVP Q4H PRN PRN Reason: SBP > 180 and HR < 70 Last Admin: 01/11/19 23:25 Dose: 10 mg Dextrose/Water (D5w) 1,000 mls @ 0 mls/hr IV .Q0M PRN PRN Reason: Hypoglycemia Ciprofloxacin/Dextrose 400 mg/ (Device) 200 mls @ 200 mls/hr IVPB Q12HR [facility] Last Admin: 01/12/19 09:21 Dose: 200 mls Insulin Human Lispro (Humalog) 0 units [place] .MILD SLIDING SCALE PRN PRN Reason: Mild Correctional Scale Last Admin: 01/11/19 13:21 Dose: 2 unit Insulin Human Lispro (Humalog) 0 units SC .BEDTIME SLIDING [place] PRN PRN Reason: Bedtime Correctional Scale Loperamide HCl (Imodium) 2 mg PO PRN PRN PRN Reason: Diarrhea/Loose Stools Loratadine (Claritin) 10 mg PO DAILYPRN PRN PRN Reason: Sinus Symptoms Morphine Sulfate (Morphine) 2 mg SLOW IVP Q4H PRN PRN Reason: Pain Ondansetron HCl (Zofran) 4 mg SLOW IVP Q4H PRN PRN Reason: Nausea Last Admin: 01/09/19 17:16 Dose: 4 mg Ondansetron HCl (Zofran Odt) 4 mg SL Q4H PRN PRN Reason: Nausea Saccharomyces Boulardii (Florastor) 250 mg PO DAILY [facility] Last Admin: 01/12/19 09:21 Dose: 250 mg Senna/Docusate Sodium (Senokot S) 2 tab PO BID PRN PRN Reason: Constipation Last Admin: 01/09/19 21:01 Dose: 2 tab Sodium Chloride ([place] Nasal [place] 0.65%) 0 ml EA NARE QIDPRN PRN PRN Reason: Nasal Congestion Throat Lozenges (Cepastat Lozenges) 1 estefany PO Q2H PRN PRN Reason: Sore Throat Zolpidem Tartrate (Ambien) 5 mg PO HSPRN PRN PRN Reason: Insomnia Last Admin: 01/11/19 22:30 Dose: 5 mg
[2019-01-12] MEDS: HumaLOG 300 UNITS/3 ML VIAL SC PRN (12:42)
[2019-01-12] MEDS: hydrALAZINE 20 MG/ML VIAL SLOW IVP PRN (19:11)
[2019-01-13 08:07] VITALS: BP 151/75; TEMP 98.7
[2019-01-13] MEDS: Famotidine 20 MG TAB PO SCH (09:32)
[2019-01-13] MEDS: Saccharomyces boulardii 250 MG CAP PO SCH (09:33)
[2019-01-13] MEDS: Enoxaparin Sodium 40 MG/0.4 ML SYRINGE SC SCH (09:33)
--- NOTE | 2019-01-13 10:24 | DIS ---
DATE OF ADMISSION: 01/09/2019 DATE OF DISCHARGE: 01/13/2019 PRIMARY CARE PHYSICIAN: Dr. Citlali Alcazar MD DISCHARGE DISPOSITION: Home. PRIMARY DISCHARGE DIAGNOSES: 1. Acute kidney failure. 2. Acute pyelonephritis. 3. Bacteremia due to Escherichia coli sepsis with acute organ dysfunction. SECONDARY DISCHARGE DIAGNOSES: 1. Obesity. 2. Hypertension. 3. History of left renal cell carcinoma, required left nephrectomy. 4. Gastroesophageal reflux disease. 5. Dyslipidemia. 6. Diabetes type 2. 7. Anxiety and depression. PRIMARY PROCEDURES/OPERATION: None. RADIOLOGICAL INVESTIGATION: Chest x-ray, abdomen and pelvis CT scan. SIGNIFICANT LABORATORY DATA: WBC 5.7, hemoglobin 10.6, platelet 199. Sodium 142, potassium 3.8, creatinine 0.89, calcium 9.3. Urinalysis suggestive of UTI. Urine culture grew E. coli. Blood culture grew E. coli. Repeat blood culture was negative. DISCHARGE MEDICATION: 1. Amlodipine 2.5 mg daily. 2. Clonazepam 0.5 mg p.o. daily. 3. Estradiol topical application as directed. 4. Tricor 48 mg p.o. daily. 5. Glucotrol XL 10 mg p.o. b.i.d. 6. Losartan 75 mg p.o. daily. 7. Metformin 1000 mg p.o. b.i.d. 8. Lopressor 25 mg p.o. b.i.d. 9. Omeprazole 40 mg p.o. daily. 10. Repaglinide 1 mg p.o. b.i.d. 11. Tramadol 50 mg p.o. b.i.d. p.r.n. 12. Cipro 500 mg p.o. b.i.d. for 14 days. 13. Florastor 250 mg p.o. daily for 14 days. 14. Zofran 8 mg sublingual q.6 hourly p.r.n. CONTRAINDICATION: None. CODE STATUS: Full code. INPATIENT CONSULT: None. ALLERGY: Penicillin. DISCHARGE PLAN: Posthospital, the patient will follow up with primary care physician in 1 week. HOSPITAL COURSE: A 78-year-old female who was admitted by me. Please see my HPI for further details. On admission, the patient was having UTI symptoms. She was having lower abdominal discomfort as well as flank pain. Her urinalysis was consistent with UTI. She was meeting sepsis criteria. She was febrile with leukocytosis and bandemia. She was treated with IV meropenem. Subsequently, based on blood and urine culture result, we changed to ciprofloxacin. On discharge, we prescribed oral ciprofloxacin for another 14 days. We did repeat blood culture, which was negative. While in the hospital, initially, she was hypotensive and that is why we held her blood pressure medication. By the time of discharge, her blood pressure has been improved. She was given IV fluid. She had acute kidney injury that has been improved. The patient is overall doing much better. She is medically stable for discharge. I have seen and examined the patient at bedside today. Plan of care discussed with the patient's son. PHYSICAL EXAMINATION: VITAL SIGNS: Currently, temperature 98.7, pulse 78, respiratory rate 16, saturation 94% on room air, blood pressure 151/75. Weight 155 pounds. GENERAL: The patient is currently alert and awake, in no obvious acute distress. HEENT: Head; normocephalic, atraumatic. LUNGS: Clear to auscultation without any rhonchi or rales. CARDIAC: S1, S2 regular without any murmur. ABDOMEN: Soft and benign. No CVA tenderness. No suprapubic tenderness. BACK EXAMINATION: Unremarkable. NEUROLOGIC: Nonfocal examination. All review of systems reviewed with her and negative. All new medication prescription sent to her pharmacy. She will resume all her previous medication. Job ID: [id number]
== END 2019-01-13 12:07 | disposition home or self-care (01) | DRG 872 ==
LOC: ERS 04:57 → OBSVTOIN 07:00 → 2SW 07:00 → ONC 17:27 → 2SW 18:05 → ONC 19:14 → 2SW 19:18 → ONC 19:42
PROVIDERS: ADMIT Internal Medicine; ATTEND Internal Medicine
DX: A41.51 Sepsis due to Escherichia coli [E. coli] (principal); N17.9 Acute kidney failure, unspecified; N10 Acute pyelonephritis; N30.00 Acute cystitis without hematuria; E66.9 Obesity, unspecified; I10 Essential (primary) hypertension; K21.9 Gastro-esophageal reflux disease without esophagitis; E78.5 Hyperlipidemia, unspecified; E11.9 Type 2 diabetes mellitus without complications; F41.9 Anxiety disorder, unspecified; R65.20 Severe sepsis without septic shock; F32.9 Major depressive disorder, single episode, unspecified; Z85.53 Personal history of malignant neoplasm of renal pelvis; Z90.5 Acquired absence of kidney; Z88.0 Allergy status to penicillin; Z79.84 Long term (current) use of oral hypoglycemic drugs; Z68.32 Body mass index [BMI] 32.0-32.9, adult
CPT/HCPCS: 36415; 36416; 71045; 74176; 80048; 80053; 81003; 81015; 82550; 83605; 83690; 83880; 85025; 87040; 87077; 87086; 87149; 87186; 93005; 94640; A4353; J0360; J0744; J1650; J1885; J2185; J2405; J3490; J7620; Q0162

== ENCOUNTER 2024-07-23 08:45 | Outpatient (CLI) | payer OTHER | END 2024-07-23 08:46 | disposition home or self-care (01) | LOC: PET 08:45 | PROVIDERS: ATTEND Internal Medicine | DX: C25.2 Malignant neoplasm of tail of pancreas (principal) | CPT/HCPCS: 78815; A9552 ==

== ENCOUNTER 2025-01-13 12:48 | Outpatient (CLI) | payer OTHER | END 2025-01-13 12:49 | disposition home or self-care (01) | LOC: BICRAD 12:48 | PROVIDERS: ATTEND Internal Medicine | DX: C64.2 Malignant neoplasm of left kidney, except renal pelvis (principal); I10 Essential (primary) hypertension | CPT/HCPCS: 36415; 71046; 80053; 83615; 83690; 83880; 84100; 84436; 84443; 84550 ==

== ENCOUNTER 2025-06-05 07:51 | Outpatient (CLI) | payer OTHER ==
[2025-06-05 08:10] LABS: Estimated GFR - POC 20.0
== END 2025-06-05 07:52 | disposition home or self-care (01) ==
LOC: CT 07:51
PROVIDERS: ATTEND Internal Medicine
DX: C64.2 Malignant neoplasm of left kidney, except renal pelvis (principal); Z79.899 Other long term (current) drug therapy
CPT/HCPCS: 36415; 71250; 74177; 82565